=== PATIENT | female | born 1985 | race Two or more races ===

== ENCOUNTER 2020-12-17 00:51 | Inpatient (IN) | payer OTHER ==
[~2020-12-17] VITALS: Ht 160 cm; Wt 1.4 kg
[2020-12-17] MEDS ORDERED: PRENATAL CAPLE1 EAC1 PO (05:13)
[2020-12-17] MEDS ORDERED: LEVOTHYROXINE25 MCG PO (05:15)
[2020-12-21] MEDS ORDERED: AMOX1TAB5 PO (13:01)
[2020-12-21] MEDS ORDERED: DERMOPLAST PAIN78 GM TOP (13:01)
[2020-12-21] MEDS ORDERED: PREPLUS CA-FE1 EACH PO (13:01)
[2020-12-21] MEDS ORDERED: LEVOTHYROXINE25 MCG PO (13:01)
== END 2020-12-21 14:37 | disposition home or self-care (01) | DRG 805 ==
LOC: OBS/DEL 00:51 → OB/GYN 04:12 → LDR 04:12 → OBS/DEL 04:12 → LDR 16:56 → OB/GYN 12-18 04:30
PROVIDERS: ADMIT Specialist; ATTEND Specialist
PROC: BY4FZZZ Ultrasonography of Third Trimester, Single Fetus (ICD-10-PCS; 2020-12-17)
PROC: 10E0XZZ Delivery of Products of Conception, External Approach (ICD-10-PCS; principal; 2020-12-18)
PROC: 4A1HXFZ Monitoring of Products of Conception, Cardiac Rhythm, External Approach (ICD-10-PCS; 2020-12-18)
PROC: BY4FZZZ Ultrasonography of Third Trimester, Single Fetus (ICD-10-PCS; 2020-12-18)
DX: O42.113 Preterm premature rupture of membranes, onset of labor more than 24 hours following rupture, third trimester (principal); O60.14X0 Preterm labor third trimester with preterm delivery third trimester, not applicable or unspecified; O99.824 Streptococcus B carrier state complicating childbirth; Z37.0 Single live birth; Z3A.32 32 weeks gestation of pregnancy